=== PATIENT | male | born 1990 | race Asian ===

== ENCOUNTER 2019-06-16 05:19 | Emergency (ER) | payer SELFPAY ==
[~2019-06-16] VITALS: Ht 165.1 cm; Wt 74.8 kg
[2019-06-16 05:25] VITALS: BP 131/75
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
[2019-06-16 05:56] LABS: APPEARANCE,URINE CLEAR; BILIRUBIN, URINE NEGATIVE (NEGATIVE); GLUCOSE, URINE (UA) NEGATIVE (NEGATIVE); KETONES,URINE 3+ (NEGATIVE); LEUKOCYTE ESTERASE ,URINE NEGATIVE (NEGATIVE); NITRITE,URINE NEGATIVE (NEGATIVE); PH,URINE 6 (4.5-8.0); PROTEIN,URINE 3+ (NEGATIVE); UROBILINOGEN,URINE 1 MG/DL (0.0-1.0)
[2019-06-16] MEDS ORDERED: LORazepam 1mg tab ORAL ONE ×2 (06:00→13:15)
[2019-06-16 06:05] LABS: COLOR,URINE YELLOW
[2019-06-16 06:11] LABS: BASOPHILS % (AUTO) 1.1 % (0.0-2.0); EOSINOPHILS % (AUTO) 0.2 % (0.0-3.0); HEMATOCRIT 42.7 % (42.0-52.0); HEMOGLOBIN 15.3 G/DL (14.2-18.0); LYMPHOCYTES % (AUTO) 29.9 % (20.0-45.0); MEAN CORPUSCULAR VOLUME 83 FL (80-99); MONOCYTES % (AUTO) 12.5 % (1.0-10.0); NEUTROPHILS % (AUTO) 56.3 % (45.0-75.0); PLATELET COUNT 367 K/UL (150-450); RED BLOOD COUNT 5.12 M/UL (4.70-6.10); RED CELL DISTRIBUTION WIDTH 11.5 % (11.6-14.8); WHITE BLOOD COUNT 6.8 K/UL (4.8-10.8)
[2019-06-16 06:12] LABS: ANION GAP 12 mmol/L (5-15); BLOOD UREA NITROGEN 15 mg/dL (7-18); CALCIUM 9.4 MG/DL (8.5-10.1); CARBON DIOXIDE 27 MMOL/L (21-32); CHLORIDE 103 MMOL/L (98-107); CREATININE 0.9 MG/DL (0.55-1.30); POTASSIUM 3.3 MMOL/L (3.5-5.1); SODIUM 142 MMOL/L (136-145)
[2019-06-16 06:14] LABS: ALANINE AMINOTRANSFERASE 84 U/L (12-78); ALBUMIN 4.2 G/DL (3.4-5.0); ALBUMIN/GLOBULIN RATIO 1.1 (1.0-2.7); ALKALINE PHOSPHATASE 129 U/L (46-116); ASPARTATE AMINO TRANSFERASE 113 U/L (15-37)
[2019-06-16 11:42] VITALS: BP 123/71
[2019-06-16] MEDS ORDERED: Haloperidol 5mg/ml Inj IM ONE (13:45)
[2019-06-16 15:52] VITALS: BP 120/69
[2019-06-16 18:00] VITALS: BP 121/67
[2019-06-16 20:24] VITALS: BP 124/75
[2019-06-16 22:15] VITALS: BP 122/72
[2019-06-17 00:12] VITALS: BP 128/78
[2019-06-17 02:37] VITALS: BP 125/82
[2019-06-17 05:10] VITALS: BP 122/75
[2019-06-17 07:10] VITALS: BP 120/75
[2019-06-17] MEDS ORDERED: Haloperidol Decanoate (Long Acting) 50mg Inj IM ONE (10:15)
[2019-06-17] MEDS ORDERED: Haloperidol 5mg/ml Inj IM ONE (10:15)
[2019-06-17] MEDS ORDERED: LORazepam Inj 2mg/ml 1ml IM ONE (10:15)
[2019-06-17] MEDS ORDERED: DiphenhydrAMINE 50mg/ml Inj IM ONE (10:15)
[2019-06-17 10:51] VITALS: BP 125/78
--- NOTE | 2019-06-17 20:00 | Consultation ---
DATE OF CONSULTATION: 06/17/2019 CONSULTING PHYSICIAN: Ricardo White M.D. HISTORY OF PRESENT ILLNESS: This is a 28-year-old male with a history of substance use disorder and possible psychiatric disorder who has been admitted to the hospital on a 5150. The patient has been manageable in the ER. He is not suicidal or homicidal and has not been violent. The patient is laughing appropriately and is delusional. He is not gravely disabled and is jose eduardo for safety. Of note, the patient is in and is being investigated by the police. The police would like to come and pick him up after the hold is discussed. PAST PSYCHIATRIC HISTORY: He is denying any psychiatric hospitalization. No suicide attempt in the past. PAST MEDICAL HISTORY: Nonsignificant. ALLERGIES: No known drug allergies. SUBSTANCE ABUSE HISTORY: Significant for marijuana and crystal meth. The patient has been using meth on a daily basis. MENTAL STATUS EXAMINATION: The patient is alert, oriented times self, place, situation, and date. The patient is cooperative with examination. Mood is labile. Affect is blunted, congruent with mood. Thought process is tangential. Thought content positive for delusions. No suicidal or homicidal ideation. Cognition is intact. Insight and judgment non-existent. ASSESSMENT: [place] I Cannabis and methamphetamine dependence. Psychotic disorder, rule out substance-induced psychosis. [place] II Deferred. [place] III None. [place] IV Moderate. [place] V 50 PLAN: 1. The patient will receive Haldol Decanoate 50. 2. Also, we will give him a cocktail as the patient . 3. We will discontinue the hold. 4. Discussed with the ER doctor and charge nurse. Ricardo White M.D. DR: GISELLE JOB#: [id number] CC:
== END 2019-06-17 10:51 ==
LOC: EMR 05:51
DX: F23 Brief psychotic disorder (principal); F15.10 Other stimulant abuse, uncomplicated; Z59.0 Homelessness; F17.200 Nicotine dependence, unspecified, uncomplicated; F31.9 Bipolar disorder, unspecified; F20.9 Schizophrenia, unspecified; F15.90 Other stimulant use, unspecified, uncomplicated; F12.90 Cannabis use, unspecified, uncomplicated
CPT/HCPCS: 36415; 80053; 80307; 81003; 85025; 96372; 99285; G0480; J1200; J1630; J1631